=== PATIENT | female | born 1995 | race Caucasian/White ===

== ENCOUNTER 2018-05-06 15:16 | Emergency (ER) | payer OTHER ==
[2018-05-06] MEDS ORDERED: Acetaminophen TAB* 325 MG PO ONE (15:51)
[2018-05-06 16:43] LABS: ABS Basophils 0 10^3/ul (0-0.2); ABS Eosinophils 0 10^3/ul (0-0.6); ABS Lymphocytes 0.5 10^3/ul (1.0-4.8); ABS Monocytes 0.9 10^3/ul (0-0.8); ABS Neutrophils 7.7 10^3/ul (1.5-7.7); ABS Nucleated RBC 0 10^3/ul; Eosinophil % 0 % (0-6); Hematocrit 37 % (35-47); Hemoglobin 12.4 g/dl (12.0-16.0); Lymphocyte % 5.2 % (25-47); Mean Corpuscular HGB Conc 34 g/dl (31-36); Mean Corpuscular Hemoglobin 30 pg (27-31); Mean Corpuscular Volume 88 fL (80-97); Mean Platelet Volume 7.6 um3 (7.4-10.4); Nucleated Red Blood Cells % 0; Platelet Count 190 10^3/ul (150-450); Red Blood Count 4.16 10^6/ul (4.00-5.40); Red Cell Distribution Width 13 % (10.5-15); White Blood Count 9.1 10^3/ul (3.5-10.8)
[2018-05-06] MEDS ORDERED: Lidocaine 1%* 5 ML VIAL INJ ONE (16:46)
[2018-05-06 16:52] LABS: INR 1.21 (0.77-1.02)
[2018-05-06] MEDS: NS 0.9% 1000 ML* 2,000 ML IV ONE (16:53)
[2018-05-06 17:01] LABS: EGFR Non-African American 98.1 (>60)
--- NOTE | 2018-05-06 17:25 | ED ---
Headache - HPI Summary HPI Summary: This is scribe Jeffery Laura documenting for attending Billy Guerrero M.D. Patient is a 22 y/o F w/ c/o fever, migraine BROWN, weakness, dizziness .She states Sx onset two days ago and reports having a 102.5 F yesterday morning. BROWN is noted to be at front and base of the back of the head. She notes neck pain and stiffness, with movement aggravating neck pain. She notes N/V as well and reports vomiting twice today. In room, dysuria and hematuria are denied. On triage, pain is rated 8/10 and nothing is noted to aggravate/alleviate Sx. Patient states she took ibuprofen yesterday and a lacey pill this morning today. Hx of migraines is reported. I, Dr. Guerrero, personally performed the services described in this documentation as scribed in my presence and it is both accurate and complete. - History Of Current Complaint Chief Complaint: EDHeadache Stated Complaint: FEVER/HEADACHE/VOMITING Time Seen by Provider: 05/06/18 15:51 Hx Obtained From: Patient Onset/Duration: Started days ago - two days ago, Still Present Currently Pain Is: Current Pain Scale(0-10)= - 8/10 on triage Timing: Constant Location of Headache: Frontal, Other: - base at the back of the head Aggravating Factor: Other - movement aggravates neck pain Allevating Factors: Nothing Associated Signs And Symptoms: Dizziness, Nausea, Vomiting, Fever, Neck Pain, Neck Stiffness, Other (Noted In Comments) - POSITIVE: weakness NEGATIVE: dysuria and hematuria - Allergies/Home Medications Allergies/Adverse Reactions: Allergies Allergy/AdvReac Type Severity Reaction Status Date / Time Sulfa (Sulfonamide Allergy Unknown Verified 05/06/18 15:18 Antibiotics) Reaction Details Home Medications: Home Medications SUMAtriptan TAB* [Imitrex TAB*] 50 mg PO DAILY 05/06/18 [History Confirmed 05/06] PMH/Surg Hx/FS Hx/Imm Hx Sensory History: Denies: Hx Legally Blind, Hx Deafness Opthamlomology History: Denies: Hx Legally Blind EENT History: Denies: Hx Deafness Infectious Disease History: No Infectious Disease History: Denies: Traveled Outside the [place] in Last 30 Days - Family History Known Family History: Negative: Blood Disorder - Social History Alcohol Use: Weekly Substance Use Type: Reports: None Smoking Status (MU): Never Smoked Tobacco Review of Systems Positive: Fever, Fatigue - weakness. Negative: Chills, Skin Diaphoresis Negative: Erythema Negative: Sore Throat Negative: Chest Pain Negative: Shortness Of Breath, Cough Positive: Vomiting, Nausea. Negative: Abdominal Pain, Diarrhea Negative: dysuria, hematuria Negative: Myalgia, Edema Negative: Rash Neurological: Other - POSITIVE: neck pain, neck stiffness, dizziness Positive: Headache All Other Systems Reviewed And Are Negative: Yes Physical Exam - Summary Physical Exam Summary: Constitutional: Well-developed, Well-nourished, Alert. (-) Distressed Skin: Warm, Dry HENT: Normocephalic; Atraumatic Eyes: Conjunctiva normal Neck: Musculoskeletal ROM normal neck. (-) JVD, (-) Stridor, (-) Tracheal deviation Cardio: Rhythm regular, rate normal, Heart sounds normal; Intact distal pulses; The pedal pulses are 2+ and symmetric. Radial pulses are 2+ and symmetric. (-) Murmur Pulmonary/Chest wall: Effort normal. (-) Respiratory distress, (-) Wheezes, (-) Rales Abd: Soft. (-) Tenderness, (-) Distension, (-) Guarding, (-) Rebound Musculoskeletal: (-) Edema Lymph: (-) Cervical adenopathy Neuro: Alert, Oriented x3, Strength normal, Cranial nerves II-XII are grossly intact. (-) Dysmetria, (-) Nystagmus, (-) Ataxia by finger to nose testing, (-) Sensory deficit. Pain with neck flexion, no obvious meningismus Psych: Mood and affect Normal Triage Information Reviewed: Yes Vital Signs On Initial Exam: Initial Vitals Temp Pulse Resp BP Pulse Ox 102.1 F 103 16 118/65 99 05/06/18 15:18 05/06/18 15:18 05/06/18 15:18 05/06/18 15:18 05/06/18 15:18 Vital Signs Reviewed: Yes Procedures - Lumbar Puncture Midline Position: Lateral Decubitus Aseptic Technique: Local Anesthesia Anesthesia Used: 1.0% Lido Spinal Needle Used: 22 Gauge - 3.5 inch, betadine was utilized, L-4, L-5 interspace, 4 mL of clear fluid, opening pressure was 14 cm of water Diagnostics - Vital Signs Vital Signs Temp Pulse Resp BP Pulse Ox 05/06/18 16:15 98 05/06/18 16:07 103.3 F 05/06/18 16:03 97 99 05/06/18 16:02 90 126/69 99 05/06/18 15:18 102.1 F 103 16 118/65 99 - Laboratory Lab Results: Lab Results 05/06/18 05/06/18 05/06/18 Range/Units 16:36 16:36 16:36 WBC 9.1 (3.5-10.8) 10^3/ul RBC 4.16 (4.00-5.40) 10^6/ul Hgb 12.4 (12.0-16.0) g/dl Hct 37 (35-47) % MCV 88 (80-97) fL MCH 30 (27-31) pg MCHC 34 (31-36) g/dl RDW 13 (10.5-15) % Plt Count 190 (150-450) 10^3/ul MPV 7.6 (7.4-10.4) um3 Neut % (Auto) 85.0 H (38-83) % Lymph % (Auto) 5.2 L (25-47) % [place] % (Auto) 9.5 H (0-7) % Eos % (Auto) 0 (0-6) % Baso % (Auto) 0.3 (0-2) % Absolute Neuts (auto) 7.7 (1.5-7.7) 10^3/ul Absolute Lymphs (auto) 0.5 L (1.0-4.8) 10^3/ul Absolute Monos (auto) 0.9 H (0-0.8) 10^3/ul Absolute Eos (auto) 0 (0-0.6) 10^3/ul Absolute Basos (auto) 0 (0-0.2) 10^3/ul Absolute Nucleated RBC 0 10^3/ul Nucleated RBC % 0 INR (Anticoag Therapy) 1.21 H (0.77-1.02) APTT 27.6 (26.0-36.3) seconds Sodium 133 L (135-145) mmol/L Potassium 3.6 (3.5-5.0) mmol/L Chloride 101 (101-111) mmol/L Carbon Dioxide 23 (22-32) mmol/L Anion Gap 9 (2-11) mmol/L BUN 8 (6-24) mg/dL Creatinine 0.74 (0.51-0.95) mg/dL Est GFR ( Amer) 118.7 (>60) Est GFR (Non-Af Amer) 98.1 (>60) BUN/Creatinine Ratio 10.8 (8-20) Glucose 111 H (70-100) mg/dL Lactic Acid (0.5-2.0) mmol/L Calcium 9.0 (8.6-10.3) mg/dL Total Bilirubin 0.70 (0.2-1.0) mg/dL AST 15 (13-39) U/L ALT 12 (7-52) U/L Alkaline Phosphatase 44 (34-104) U/L Total Protein 7.2 (6.4-8.9) g/dL Albumin 3.9 (3.2-5.2) g/dL Globulin 3.3 (2-4) g/dL Albumin/Globulin Ratio 1.2 (1-3) //18 Range/Units 16:36 WBC (3.5-10.8) 10^3/ul RBC (4.00-5.40) 10^6/ul Hgb (12.0-16.0) g/dl Hct (35-47) % MCV (80-97) fL MCH (27-31) pg MCHC (31-36) g/dl RDW (10.5-15) % Plt Count (150-450) 10^3/ul MPV (7.4-10.4) um3 Neut % (Auto) (38-83) % Lymph % (Auto) (25-47) % [place] % (Auto) (0-7) % Eos % (Auto) (0-6) % Baso % (Auto) (0-2) % Absolute Neuts (auto) (1.5-7.7) 10^3/ul Absolute Lymphs (auto) (1.0-4.8) 10^3/ul Absolute Monos (auto) (0-0.8) 10^3/ul Absolute Eos (auto) (0-0.6) 10^3/ul Absolute Basos (auto) (0-0.2) 10^3/ul Absolute Nucleated RBC 10^3/ul Nucleated RBC % INR (Anticoag Therapy) (0.77-1.02) APTT (26.0-36.3) seconds Sodium (135-145) mmol/L Potassium (3.5-5.0) mmol/L Chloride (101-111) mmol/L Carbon Dioxide (22-32) mmol/L Anion Gap (2-11) mmol/L BUN (6-24) mg/dL Creatinine (0.51-0.95) mg/dL Est GFR ( Amer) (>60) Est GFR (Non-Af Amer) (>60) BUN/Creatinine Ratio (8-20) Glucose (70-100) mg/dL Lactic Acid 0.7 (0.5-2.0) mmol/L Calcium (8.6-10.3) mg/dL Total Bilirubin (0.2-1.0) mg/dL AST (13-39) U/L ALT (7-52) U/L Alkaline Phosphatase (34-104) U/L Total Protein (6.4-8.9) g/dL Albumin (3.2-5.2) g/dL Globulin (2-4) g/dL Albumin/Globulin Ratio (1-3) Result Diagrams: 05/06/18 16:36 05/06/18 16:36 Lab Statement: Any lab studies that have been ordered have been reviewed, and results considered in the medical decision making process. - CT CT Head CT Interpretation: No Acute Changes CT Interpretation Completed By: Radiologist - negative examination; this report was reviewed by ED physician Re-Evaluation - Re-Evaluation First Eval Re-Evaluation Time: 19:30 Comment: Discussed results of tests and labs. Patient will be discharged to home and follow up with PCP. She is agreeable with plan. Headache Course/Dx - Course Assessment/Plan: Patient is a 22 y/o F w/ c/o fever, migraine BROWN, weakness, dizziness .She states Sx onset two days ago and reports having a 102.5 F yesterday morning. BROWN is noted to be at front and base of the back of the head. She notes neck pain and stiffness, with movement aggravating neck pain. She notes N/V as well and reports vomiting twice today. In room, dysuria and hematuria are denied. On triage, pain is rated 8/10 and nothing is noted to aggravate/alleviate Sx. Patient states she took ibuprofen yesterday and a lacey pill this morning today. Hx of migraines is reported. Physical exam showed pain with neck flextion and no obvious meningismus. During ED course, patient received fluids, Xylocaine 11% 4 ml INJ ONCE ONE, Keflex cap 500 mg PO ED ONCE ONE, Tylenol tab 650 mg PO ED ONCE ONE. Labs showed Neut % 85, INR 1.21 , sodium 133, lactic 0.7. UA showed 1+ (30 mg/dl) urine protein, urine blood 1+ , urine ketones 1+, urine nitrate was positive, urine leukocyte esterase 3+ A, urine WBC 3+ (>20/hpf), urine RBC 1+ (3-5/hpf), urine squamous epith cells were present, urine bacteria was 1+. CSF showed no significant findings. Patient was diagnosed with UTI and fever. Patient will be discharged to home and follow up with PCP in 1-2 days. She is agreeable with plan. Discharge - Sign-Out/Discharge Documenting (check all that apply): Patient Departure - discharge - Discharge Plan Condition: Stable Disposition: HOME Prescriptions: Cephalexin CAP* [Keflex CAP*] 500 mg PO QID #28 cap Patient Education Materials: Urinary Tract Infection in Women (ED), Fever in Adults (ED) Referrals: [facility] [Outside] - 2 Days Additional Instructions: Follow up with primary care physician in 1-2 days. Return to ED for any changing or worsening symptoms.
[2018-05-06 17:32] LABS: Body Fluid Source Cerebral Spinal
--- NOTE | 2018-05-06 18:10 | RAD ---
INDICATION: Headaches. Fever. COMPARISON: None TECHNIQUE: Noncontrast axial source images were acquired from the skull base to the vertex. FINDINGS: Ventricles/sulci: The ventricles and cisterns are normal in size and configuration for age. Brain parenchyma: There is no focal parenchymal finding, evidence of intracranial mass, or intracranial mass effect. Intracranial hemorrhage:None. Extra-axial spaces: There are no abnormal extra axial fluid collections or evidence of extra-axial mass. Calvarium: There is no calvarial fracture or other calvarial abnormality. Scalp: There is no evidence of scalp or extracalvarial soft tissue abnormality. Paranasal sinuses/mastoid: The paranasal sinuses and mastoid air cells are clear. Other: None. IMPRESSION: NEGATIVE EXAMINATION
[2018-05-06 18:59] LABS: Urine Appearance Cloudy; Urine Blood 1+ (Negative); Urine Color Yellow; Urine Ketones 1+ (Negative); Urine Protein 1+(30 mg/dL) (Negative); Urine Red Blood Cell 1+(3-5/hpf) (Absent); Urine Specific Gravity 1.008 (1.010-1.030); Urine Urobilinogen Negative (Negative); Urine White Blood Cell 3+(>20/hpf) (Absent)
[2018-05-06] MEDS ORDERED: Cephalexin CAP* 500 MG PO ONE (19:22)
[2018-05-06 19:23] VITALS: BP 101/56
== END 2018-05-06 19:45 | disposition home or self-care (01) ==
LOC: ED 15:16
DX: R50.9 Fever, unspecified (principal); G43.909 Migraine, unspecified, not intractable, without status migrainosus; R53.1 Weakness; R42 Dizziness and giddiness; M54.2 Cervicalgia; M43.6 Torticollis; Z88.2 Allergy status to sulfonamides
CPT/HCPCS: 36415; 62270; 70450; 80053; 81003; 81015; 82945; 83605; 84157; 85025; 85610; 85730; 86618; 87040; 87070; 87077; 87086; 87186; 87205; 87798; 89051; 96360; 96361; 99284; A9270-GY

== ENCOUNTER 2018-05-07 00:16 | Emergency (ER) | payer OTHER ==
[2018-05-07] MEDS ORDERED: Ibuprofen TAB* 800 MG PO ONE (01:10)
[2018-05-07] MEDS ORDERED: Cephalexin CAP* 500 MG PO ONE (01:11)
[2018-05-07] MEDS ORDERED: Acetaminophen TAB* 325 MG PO ONE (01:11)
--- NOTE | 2018-05-07 01:57 | ED ---
HPI Febrile Illness - HPI Summary HPI Summary: This is leopoldo Estevez documenting for attending Lena Mitchell MD. This patient is a 22 year old F presenting to [facility] accompanied by her friends with a chief complaint of a rising fever. Pt was seen in the ED earlier tonight and dx with UTI. She is concerned because of her fever and states she took 400mg of ibuprofen without relief. The patient rates the pain 9/10 in severity. Pt states she has not taking abx since she left the ED earlier today. - History of Current Complaint Chief Complaint: EDFever Time Seen by Provider: 05/07/18 01:02 Hx Obtained From: Patient Onset/Duration: Started Hours Ago, Still Present Timing: Constant Temperature: 101.8 F Initial Severity: Moderate Current Severity: Mild Pain Intensity: 9 Pain Scale Used: 0-10 Numeric Alleviating Factors: Nothing - Allergy/Home Medications Allergies/Adverse Reactions: Allergies Allergy/AdvReac Type Severity Reaction Status Date / Time Sulfa (Sulfonamide Allergy Unknown Verified 05/07/18 00:25 Antibiotics) Reaction Details PMH/Surg Hx/FS Hx/Imm Hx Cardiovascular History: Denies: Hx Atrial Fibrillation, Hx Auto Implanted Cardiovert Defib, Hx Congenital Heart Disease Respiratory History: Denies: Hx Chronic Bronchitis, Hx Chronic Obstructive Pulmonary Disease (COPD ) History: Denies: Hx Benign Prostatic Hyperplasia Sensory History: Denies: Hx Legally Blind, Hx Deafness Opthamlomology History: Denies: Hx Legally Blind Infectious Disease History: No Infectious Disease History: Denies: Traveled Outside the [place] in Last 30 Days - Family History Known Family History: Negative: Seizure Disorder, Blood Disorder - Social History Alcohol Use: Weekly Substance Use Type: Reports: None Smoking Status (MU): Never Smoked Tobacco Review of Systems Positive: Fever Negative: Slurred Speech All Other Systems Reviewed And Are Negative: Yes Physical Exam - Summary Physical Exam Summary: VITAL SIGNS: Reviewed. GENERAL: Patient is a well-developed and nourished female who is lying comfortable in the stretcher. Patient is not in any acute respiratory distress. HEAD AND FACE: No signs of trauma. No ecchymosis, hematomas or skull depressions. No sinus tenderness. EYES: PERRLA, EOMI x 2, No injected conjunctiva, no nystagmus. EARS: Hearing grossly intact. Ear canals and tympanic membranes are within normal limits. MOUTH: Oropharynx within normal limits. NECK: Supple, trachea is midline, no adenopathy, no JVD, no carotid bruit, no c- spine tenderness, neck with full ROM. CHEST: Symmetric, no tenderness at palpation LUNGS: Clear to auscultation bilaterally. No wheezing or crackles. CVS: Regular rate and rhythm, S1 and S2 present, no murmurs or gallops appreciated. ABDOMEN: Soft, non-tender. No signs of distention. No rebound no guarding, and no masses palpated. Bowel sounds are normal. EXTREMITIES: FROM in all major joints, no edema, no cyanosis or clubbing. NEURO: Alert and oriented x 3. No acute neurological deficits. Speech is normal and follows commands. SKIN: Dry and warm Triage Information Reviewed: Yes Vital Signs On Initial Exam: Initial Vitals Temp Pulse Resp BP Pulse Ox 101.8 F 110 16 113/69 97 05/07/18 00:21 05/07/18 00:21 05/07/18 00:21 05/07/18 00:21 05/07/18 00:21 Vital Signs Reviewed: Yes Diagnostics - Vital Signs Vital Signs Temp Pulse Resp BP Pulse Ox 05/07/18 00:21 101.8 F 110 16 113/69 97 - Laboratory Lab Statement: Any lab studies that have been ordered have been reviewed, and results considered in the medical decision making process. Re-Evaluation - Re-Evaluation First Eval Re-Evaluation Time: 01:55 Change: Improved Comment: The patient is feeling better and would like to go home. Her temp is 99.1 F. Course/Dx - Course Assessment/Plan: This patient is a 22 year old F presenting to [facility] accompanied by her friends with a chief complaint of a rising fever. Pt was seen in the ED earlier tonight and dx with UTI. She is concerned because of her fever and states she took 400mg of ibuprofen without relief. The patient rates the pain 9/10 in severity. In the ED the patient was given tylenol, motrin, and keflex. Which alleviated her sx. Patient will be discharged with prescription for motrin and follow up from physician referral center. The patient is agreeable with this plan. - Diagnoses Provider Diagnoses: UTI (urinary tract infection), Viral syndrome Discharge - Sign-Out/Discharge Documenting (check all that apply): Patient Departure - Discharge Plan Condition: Stable Disposition: HOME Patient Education Materials: Urinary Tract Infection in Women (DC) Referrals: [facility]IAN REFERRAL [Outside] - 2 Days Additional Instructions: RETURN TO THE EMERGENCY DEPARTMENT FOR CHANGING OR WORSENING SYMPTOMS Attestation Statement Scribe Attestation: This is leopoldo Estevez documenting for attending Lena Mitchell MD. User Type: Provider with Scribe Provider Attestation: The documentation recorded by the scribe accurately reflects the service I personally performed and the decisions made by me.
[2018-05-07 02:31] VITALS: BP 117/62
== END 2018-05-07 02:31 | disposition home or self-care (01) ==
LOC: ED 00:16
DX: N39.0 Urinary tract infection, site not specified (principal); B34.9 Viral infection, unspecified; R50.9 Fever, unspecified
CPT/HCPCS: 99283; A9270-GY